=== PATIENT | female | born 1985 | race Caucasian/White ===

== ENCOUNTER 2020-06-29 17:29 | Emergency (ER) | payer OTHER, SELFPAY ==
[2020-06-29 18:22] VITALS: BP 168/110; PULSE 92; RESP 20; TEMP 36.7; O2SAT 97
--- NOTE | 2020-06-29 18:26 | ED.FEMALEGU ---
HPI - Female Genitourinary General Chief complaint: Abdominal Pain Stated complaint: cramping, spotting, headache Time Seen by Provider: 06/29/20 18:26 Source: patient Mode of arrival: ambulatory Limitations: no limitations History of Present Illness HPI Narrative: 35-year-old woman comes in today complaining of crampy pelvic pain, spotting, headache, and intermittent nausea for the last day or 2. Patient states her last LMP was 06/06. She is not currently on any control. Prior to that she was on an IUD. She has been trying to become for 2 years. She denies discharge, lightheadedness, chest pain, vomiting, fever, cough or cold symptoms. She denies new sexual partners. Patient states she has had irregular periods for years. MD elicited complaint: vaginal bleeding and pelvic pain Onset (ago): day(s) (2) Location of symptoms: suprapubic Severity: moderate Female Urogenital Radiation: Non-Radiating Quality of pain: cramping Consistency: intermittent Vaginal discharge: none Vaginal bleeding: scant Exacerbating factors: none Relieving factors: none Associated symptoms: nausea Sexual activity: Yes Possible : unsure if and at home test not taken Date of Last Menstrual Period: 06/06/20 Related Data Home Medications Medication Instructions Recorded Confirmed No Home Medications 06/29/20 06/29/20 Allergies Allergy/AdvReac Type Severity Reaction Status Date / Time No Known Allergies Allergy Verified 06/29/20 18:27 Review of Systems Review of Systems: All systems reviewed & are unremarkable except as noted in HPI and below Constitutional: Constitutional: Denies chills and Reports fatigue Eyes: Eyes: Denies change in vision and Denies photophobia ENT: Denies dysphagia, Denies nasal congestion and Denies sore throat Cardiovascular: Cardiovascular: Denies chest pain and Denies radiating jaw, neck or arm pain Respiratory: Respiratory: Denies cough and Denies dyspnea Gastrointestinal: Gastrointestinal: Denies abdominal pain, Reports nausea and Denies vomiting Genitourinary: Genitourinary: Denies hematuria, Denies nocturia, Denies dysuria and Denies vaginal discharge Musculoskeletal: Musculoskeletal: Denies arthralgias and Denies joint swelling Neurologic: Denies vertigo, Denies dizziness and Denies syncope Endocrine: Endocrine: Denies polydipsia and Denies polyuria Hematologic/Lymphatic: Hematologic/Lymphatic: Denies easy bleeding and Denies easy bruising Allergic/Immunologic: Allergic/Immunologic: Denies lip swelling and Denies throat swelling [facility] Surgical History Surgical History (Updated 06/29/20 @ 18:37 by Jason Ramires MD) History of Social History Social History (Updated 06/29/20 @ 18:37 by Jason Ramires MD) Smoking status: Current every day smoker Alcohol intake: never Substance use: never Living arrangements: with family Gender identity (if verbalized by the patient): Female Exam Const: General: healthy appearing and alert Nutritional Appearance: obese Orientation/consciousness: patient oriented x3 Limitations: no limitations Other: anxious, mild distress HENMT: Ears: external ears normal, TM's normal bilaterally and EAC's normal General nose exam: Normal nares present Face and sinus: normal facial exam Mouth: Yes moist mucous membranes Throat: posterior oropharynx normal Eyes: Conjunctivae: conjunctivae normal Pupils: Equal, round and reactive pupils present EOM: EOMs intact bilaterally Resp: Effort & Inspection: normal respiratory effort and not labored Auscultation: clear to auscultation bilaterally, no rales, no rhonchi and no wheezes Cardio: Rate: regular rate Rhythm: regular rhythm Heart sounds: no murmurs GI: GI Palp: Yes Soft to palpation, No Tenderness to palpation present (GI), No Guarding due to palpation present (GI), No Palpable mass present and No Rebound tenderness present Other: no flank tenderne
[2020-06-29 18:45] LABS: Basophils Absolute Auto 0.07 K/mm3 (0.00-0.10); Basophils Percent Auto 0.6 % (0.0-1.0); Eosinophils Percent Auto 2.7 % (1.0-6.0); Hematocrit 39.1 % (35.0-49.0); Hemoglobin 13.8 g/dL (12.0-15.0); Immature Granulocyte Absolute 0.04 K/mm3 (0.00-0.00); Immature Granulocyte Percent A 0.4 % (0.0-0.0); Lymphocytes Absolute Auto 3.33 K/mm3 (1.10-4.50); Lymphocytes Percent Auto 30.2 % (18.0-42.0); Mean Corpuscular HGB Conc 35.3 g/dL (32.0-36.0); Mean Corpuscular Hemoglobin 33.6 pg (27.0-31.0); Mean Corpuscular Volume 95.1 fL (78.0-102.0); Mean Platelet Volume 10.6 fl (9.2-11.8); Monocytes Absolute Auto 0.81 K/mm3 (0.10-0.90); Monocytes Percent Auto 7.4 % (2.0-11.0); Neutrophils Absolute Auto 6.5 K/mm3 (1.7-7.2); Neutrophils Percent Auto 58.7 % (50.0-70.0); Platelet Count Result 298 K/mm3 (150-420); Red Blood Count 4.11 M/mm3 (4.20-5.40); Red Cell Distribution Width 12.2 % (11.6-14.4)
[2020-06-29 19:01] LABS: Add Urine Microscopic? YES; Appearance Urine Clear (Clear); Bilirubin Urine Negative (Negative); Blood Urine Negative (Negative); Color Urine Yellow (Yellow); Glucose Urine UA Negative (Negative); Ketones Urine Negative (Negative); Leukocyte Esterase Ur Negative (Negative); Nitrate Urine Negative (Negative); Protein Urine Trace (Negative); Specific Grav Ur >= 1.030 (1.010-1.020); Urobilinogen Urine 0.2 mg/dL (0.2-1.0)
[2020-06-29 19:04] LABS: Bacteria Urine Trace /hpf; RBC Urine 0-2 /hpf (0-2); Squamous Epithelial Cell Urine Few /hpf (Few); WBC Urine 0-3 /hpf (0-3)
[2020-06-29 19:09] LABS: Alanine Aminotransferase 38 U/L (14-59); Albumin Level 2.7 g/dL (3.4-5.0); Alkaline Phosphatase 70 U/L (46-116); Anion Gap 7 mmol/L (8-16); Aspartate Amino Transferase 22 U/L (15-37); Bilirubin,Total 0.2 mg/dL (0.00-1.00); Blood Urea Nitrogen 14 mg/dL (7-18); Calcium 9.2 mg/dL (8.5-10.1); Carbon Dioxide 26 mmol/L (21-32); Chloride 105 mmol/L (98-108); Estimated CRCL calculation 89 ml/min; Estimated Glomerular Filt Rate > 60; Glucose 108 mg/dL (70-99); Osmolality Calculated 287 mOsm/kg (285-295); Potassium 3.5 mmol/L (3.5-5.1); Sodium 138 mmol/L (136-145); Total Protein 7.2 g/dL (6.4-8.2)
[2020-06-29 19:10] LABS: Thyroid Stimulating Hormone Reflex 1.84 u/IU/mL (0.36-3.74)
[2020-06-29 20:15] VITALS: BP 119/82; PULSE 71; RESP 20; TEMP 36.7; O2SAT 97
== END 2020-06-29 20:18 | disposition home or self-care (01) ==
PROVIDERS: Emergency Provider Emergency Medicine; PCP Physician Assistant
DX: O20.0 Threatened abortion (principal)
CPT/HCPCS: 36415; 80053; 81001; 84443; 84702; 85025; 87491; 87591; 99281; 99283

== ENCOUNTER 2020-10-07 12:33 | Emergency (ER) | payer OTHER, SELFPAY ==
--- NOTE | ~2020-10-07 | XR_ITS ---
XR ankle RT min 3V DATE: 10/07/2020 13:27 INDICATION: Patient stepped in hole. Lateral ankle swelling. TECHNIQUE: 4 views COMPARISON: None FINDINGS: There is lateral soft tissue swelling. No fracture or dislocation of the ankle or disruptio n of the ankle mortise is detected. Plantar calcaneal enthesopathy. IMPRESSION: Lateral soft tissue swelling; no fracture or dislocation Reviewed, dictated and finalized at location [facility].
[2020-10-07 13:12] VITALS: BP 132/72; PULSE 91; RESP 20; TEMP 36.4; O2SAT 97
--- NOTE | 2020-10-07 13:13 | ED.LOWEXIN ---
HPI - Extremity Injury (Lower) General Chief Complaint: Extremity Injury, Lower Stated Complaint: HURT ANKLE Time Seen by Provider: 10/07/20 13:14 Source: patient Mode of arrival: wheelchair Limitations: no limitations History of Present Illness HPI Narrative: 35-year-old woman comes in today complaining of right ankle pain and swelling that started last night after she stepped in a hole. She states that she felt something pop in her ankle. She has been unable to bear weight since. She denies any numbness or tingling and has had no prior ankle fractures or surgeries. complaint: ankle injury Onset (ago): hour(s) (12) Type of Injury: unknown Place: street/outdoors Severity: moderate Relieving factors: rest Exacerbating factors: weight bearing, movement and palpation Context: walking Associated symptoms: snap/pop sensation, swelling and unable to bear weight Other symptoms: none Related Data Allergies Allergy/AdvReac Type Severity Reaction Status Date / Time No Known Allergies Allergy Verified 10/07/20 13:19 Review of Systems Review of Systems: All systems reviewed & are unremarkable except as noted in HPI and below Constitutional: Constitutional: Denies chills and Denies fever(s) Musculoskeletal: Musculoskeletal: Reports arthralgias, Reports joint swelling and Denies muscle cramps Integumentary/Breasts: Skin/Breast: Denies pruritus, Denies rash and Denies skin ulcer Neurologic: Denies vertigo, Denies dizziness, Denies syncope, Denies focal weakness and Denies numbness Hematologic/Lymphatic: Hematologic/Lymphatic: Denies easy bleeding and Denies easy bruising Allergic/Immunologic: Allergic/Immunologic: Denies lip swelling and Denies throat swelling [facility] Surgical History Surgical History History of Social History Social History (Updated 06/29/20 @ 18:37 by Jason Ramires MD) Smoking status: Current every day smoker Alcohol intake: never Substance use: never Gender identity (if verbalized by the patient): Female Exam Const: General: healthy appearing and alert Orientation/consciousness: patient oriented x3 Limitations: no limitations Other: [id number] acute distress. Eyes: Conjunctivae: conjunctivae normal Pupils: Equal, round and reactive pupils present EOM: EOMs intact bilaterally Resp: Effort & Inspection: normal respiratory effort and not labored Auscultation: clear to auscultation bilaterally, no rales, no rhonchi and no wheezes Cardio: Rate: regular rate Rhythm: regular rhythm Heart sounds: no murmurs Skin: General skin exam: normal color, no jaundice and no pallor Rashes: no rashes Neuro: General: patient oriented x3, moves all extremities, no focal motor deficits and CN's II-XI intact bilaterally Speech: normal speech Extrem: General: no clubbing, cyanosis or edema Other: Tenderness and swelling over the right lateral malleolus and to a lesser degree the medial malleolus. There is no metatarsal tenderness, midfoot tenderness or calcaneal tenderness. Decreased range of motion. Distal neurovascular exam is intact. Psych: Appearance: grossly normal and well kempt Mental Status: mental status grossly normal Affect: normal affect Attitude: cooperative Thought content: Yes Normal thought content present Course Vital Signs Vital signs: Vital Signs Temperature 36.4 C 10/07/20 13:12 Pulse Rate 91 10/07/20 13:12 Respiratory Rate 20 10/07/20 13:12 Blood Pressure 132/72 10/07/20 13:12 Pulse Oximetry 97 10/07/20 13:12 Temperature 36.4 C 10/07/20 13:12 Pulse Rate 91 10/07/20 13:12 Respiratory Rate 20 10/07/20 13:12 Blood Pressure 132/72 10/07/20 13:12 Pulse Oximetry 97 10/07/20 13:12 MDM - Extremity Injury (Lower) Differential Diagnosis Differential diagnosis: Likely ankle sprain and strain and ankle fracture Discharge Plan Discharge Clinical Impression:
[2020-10-07 14:19] VITALS: BP 128/82; PULSE 88; RESP 20; O2SAT 98
== END 2020-10-07 14:25 | disposition home or self-care (01) ==
PROVIDERS: Emergency Provider Emergency Medicine; PCP Physician Assistant
DX: S93.401A Sprain of unspecified ligament of right ankle, initial encounter (principal)
CPT/HCPCS: 73610; 99283; L4350

== ENCOUNTER 2021-04-13 09:19 | Emergency (ER) | payer OTHER, SELFPAY ==
--- NOTE | ~2021-04-13 | CT_ITS ---
EXAMINATION: CTA chest PE protocol DATE: 04/13/2021 12:34 INDICATION: Elevated d-dimer. Anxiety. TECHNIQUE: Computed tomography angiography (CTA) of the chest was performed with 100 mL Omnipaque-350 intravenous contrast timed to evaluate the pulmonary arteries. Coronal maximum intensity projection 3D-reconstructions were created by the technologist. Automated exposure control and iterative reconst ruction technique were employed. Exam dose: 359.46 mGy-cm total exam DLP. COMPARISON: None. FINDINGS: There is suboptimal concentration of contrast material in the pulmonary arteries but no sylvia arent pulmonary embolism. No thoracic aortic aneurysm or dissection. No pulmonary infiltrate or consolidation or suspicious mass lesion is detected. No pleural effusion or pneumothorax. Normal heart size. No pericardial effusion. Included skeletal structures are unremarkable. IMPRESSION: No significant abnormality Reviewed, dictated and finalized at [facility]. Reviewed, dictated and finalized at location A. RS BUFFER IMPRESSION: No significant abnormality
[2021-04-13 09:25] VITALS: BP 149/107; PULSE 106; RESP 20; TEMP 36.6; O2SAT 97
--- NOTE | 2021-04-13 09:43 | ED.ANXIETY ---
HPI - Anxiety General Chief Complaint: Anxiety Stated Complaint: CHEST PAIN FOR 4 DAYS GETTING WORSE Source: patient and RN notes reviewed Mode of arrival: ambulatory Limitations: no limitations History of Present Illness HPI narrative: patient states she has been having some chest wall discomfort for the last 4 days intermittently. Also feels like she has been having some palpitations. Said last night she had to sit up to sleep because she felt like her heart was racing. She was started on some medication for anxiety/ depression just 2 weeks ago. No history of any heart problems in the past. She denies any associated nausea vomiting, shortness of breath, diaphoresis, radiation. She has been under emotional stress at home due to relationship issues. MD complaint: anxiety and heart racing Onset (ago): day(s) (4) Symptoms: chest pain, palpitations and extremity numbness/tingling Severity: moderate Quality: intermittent Place: home History of similar episodes: No Provoking factors: emotional stress Relieving factors: rest Exacerbating factors: thinking about event Related Data Home Medications Medication Instructions Recorded Confirmed escitalopram oxalate 10 mg PO DAILY 04/13/21 04/13/21 Allergies Allergy/AdvReac Type Severity Reaction Status Date / Time No Known Allergies Allergy Verified 10/07/20 13:19 Review of Systems Review of Systems: All systems reviewed & are unremarkable except as noted in HPI and below Constitutional: Constitutional: Denies chills and Denies fever(s) Respiratory: Respiratory: Denies cough, Denies dyspnea and Denies wheezing Gastrointestinal: Gastrointestinal: Denies nausea and Denies vomiting PMFSH Past Medical History Medical History (Updated 04/13/21 @ 13:10 by Pineda Agarwal MD) Anxiety and depression Surgical History Surgical History History of Social History Social History Smoking status: Current every day smoker Alcohol intake: never Substance use: never Gender identity (if verbalized by the patient): Female Exam Const: General: healthy appearing, no acute distress and alert Nutritional Appearance: well nourished Orientation/consciousness: patient oriented x3 Other: Female nurse in room during examination. HENMT: Head: normal to inspection Ears: external ears normal Eyes: Conjunctivae: conjunctivae normal Pupils: Equal, round and reactive pupils present EOM: EOMs intact bilaterally Neck: Neck: normal visual inspection Chest: Chest palpation & inspection: normal inspection of the chest Resp: Effort & Inspection: normal respiratory effort Auscultation: clear to auscultation bilaterally Cardio: Rate: regular rate and tachycardic GI: GI Palp: Yes Soft to palpation and No Tenderness to palpation present (GI) Auscultation: normal bowel sounds Back/Spine/Pelvis: Cervical Spine: cervical ROM normal Thoracic/Lumbar Spine: thoraco-lumbar ROM normal Skin: General skin exam: normal color Rashes: no rashes Neuro: General: patient oriented x3, moves all extremities, no meningeal signs and no focal motor deficits Speech: normal speech Gait exam (Neuro): Normal gait present Extrem: General: normal to inspection and no clubbing, cyanosis or edema Psych: Appearance: grossly normal and well kempt Mental Status: mental status grossly normal Affect: normal affect Attitude: cooperative Thought content: Yes Normal thought content present Course Vital Signs Vital signs: Vital Signs Temperature 36.6 C 04/13/21 09:25 Pulse Rate 106 H 04/13/21 09:25 Respiratory Rate 04/13/21 09:25 Blood Pressure 149/107 H 04/13/21 09:25 Pulse Oximetry 97 04/13/21 09:25 Temperature 36.6 C 04/13/21 13:22 Pulse Rate 107 H 04/13/21 13:22 Respiratory Rate 20 04/13/21 13:22 Blood Pressure 141/97 H 04/13/21 13:22 Pulse Oxi
--- NOTE | 2021-04-13 10:09 | ECG_ITS ---
Measurements Intervals [place] Rate: 98 P: 59 [place]: 146 QRS: 28 QRSD: 77 T: -2 QT: 348 QTc: 444 Interpretive Statements SINUS RHYTHM BORDERLINE T WAVE ABNORMALITY- ANT/INF LEADS BORDERLINE ECG Electronically Signed On 04-13-2021 10:17:04 TYPE CASTING MACHINE OPERATOR by Manny Spivey D.O.
[2021-04-13 10:20] VITALS: BP 148/91; PULSE 111; RESP 20; O2SAT 97
[2021-04-13 10:28] LABS: Basophils Absolute Auto 0.05 K/mm3 (0.00-0.10); Basophils Percent Auto 0.6 % (0.0-1.0); Eosinophils Absolute Auto 0.12 K/mm3 (0.02-0.50); Eosinophils Percent Auto 1.5 % (1.0-6.0); Hematocrit 43.6 % (35.0-49.0); Hemoglobin 15.7 g/dL (12.0-15.0); Immature Granulocyte Absolute 0.05 K/mm3 (0.00-0.00); Immature Granulocyte Percent A 0.6 % (0.0-0.0); Lymphocytes Absolute Auto 1.94 K/mm3 (1.10-4.50); Mean Platelet Volume 9.6 fl (9.2-11.8); Monocytes Absolute Auto 0.75 K/mm3 (0.10-0.90); Monocytes Percent Auto 9.3 % (2.0-11.0); Neutrophils Absolute Auto 5.2 K/mm3 (1.7-7.2); Platelet Count Result 297 K/mm3 (150-420); Red Blood Count 4.36 M/mm3 (4.20-5.40); Red Cell Distribution Width 13.3 % (11.6-14.4); White Blood Count 8.1 K/mm3 (4.8-10.8)
[2021-04-13 10:46] LABS: Troponin I 5.1 ng/L (0.00-60.4)
[2021-04-13 10:48] LABS: D Dimer 0.76 mg/L (0.19-0.50)
[2021-04-13 10:57] LABS: Alanine Aminotransferase 40 U/L (14-59); Albumin Level 2.4 g/dL (3.4-5.0); Alkaline Phosphatase 79 U/L (46-116); Anion Gap 12 mmol/L (8-16); Aspartate Amino Transferase 44 U/L (15-37); Bilirubin,Total 0.3 mg/dL (0.00-1.00); Blood Urea Nitrogen 8 mg/dL (7-18); Calcium 8.4 mg/dL (8.5-10.1); Carbon Dioxide 26 mmol/L (21-32); Chloride 102 mmol/L (98-108); Estimated CRCL calculation 91 ml/min; Estimated Glomerular Filt Rate > 60; Glucose 116 mg/dL (70-99); Osmolality Calculated 289 mOsm/kg (285-295); Sodium 140 mmol/L (136-145); Total Protein 6.8 g/dL (6.4-8.2)
[2021-04-13 11:35] VITALS: BP 141/100; PULSE 100; RESP 20
[2021-04-13 13:22] VITALS: BP 141/97; PULSE 107; RESP 20; TEMP 36.6; O2SAT 97
== END 2021-04-13 13:20 | disposition home or self-care (01) ==
PROVIDERS: Emergency Provider Emergency Medicine; PCP Physician Assistant
DX: R41.9 Unspecified symptoms and signs involving cognitive functions and awareness (principal); I10 Essential (primary) hypertension; R00.0 Tachycardia, unspecified; E87.6 Hypokalemia
CPT/HCPCS: 36415; 71275; 80053; 84484; 85025; 85380; 93005; 99283; 99284; Q9967

== ENCOUNTER 2022-03-12 16:32 | Inpatient (IN) | payer OTHER, SELFPAY ==
[2022-03-12] VITALS (64 sets, daily range): BP systolic 126–158; BP diastolic 55–128; PULSE 48–127; RESP 12–18; TEMP 36.6; O2SAT 92–100; BMI 27.8
[2022-03-12] MEDS: LACTATED RINGERS 1,000 ML 125 ML IV CONT (17:32)
[2022-03-12 17:45] LABS: Basophils Percent Auto 0.4 % (0.2-1.2); Eosinophils Absolute Auto 0.1 K/mm3 (0-0.3); Eosinophils Percent Auto 0.8 % (0-4.4); Hematocrit 36.6 % (37.0-47.0); Immature Granulocyte Absolute 0.06 K/mm3 (0.00-0.031); Immature Granulocyte Percent A 0.6 % (0-0.5); Lymphocytes Absolute Auto 2.14 K/mm3 (0.9-3.2); Lymphocytes Percent Auto 20.7 % (18.3-44.2); Mean Corpuscular HGB Conc 35.5 g/dl (32-36); Mean Corpuscular Hemoglobin 33.3 pg (26-34); Mean Corpuscular Volume 93.8 fl (80-100); Mean Platelet Volume 11.2 fl (7.4-10.4); Monocytes Absolute Auto 0.7 K/mm3 (0.1-0.6); Monocytes Percent Auto 6.4 % (2.6-8.5); Neutrophils Absolute Auto 7.4 K/mm3 (1.3-6.7); Neutrophils Percent Auto 71.1 % (45.5-73.1); Platelet Count Result 352 k/mm3 (150-375); Red Cell Distribution Width 12.5 % (11.5-14.5); White Blood Count 10.3 K/mm3 (4.5-10.0)
[2022-03-12 17:46] LABS: Add Urine Microscopic? YES; Appearance Urine Clear (Clear); Bilirubin Urine 1+ (Negative); Blood Urine 1+ (Negative); Color Urine Yellow (Yellow); Glucose Urine UA Negative (Negative); Ketones Urine Trace mg/dL (Negative); Leukocyte Esterase Ur Negative LEU/UL (Negative); Nitrate Urine Positive (Negative); Protein Urine 2+ mg/dL (Negative); Specific Grav Ur >= 1.030 (1.001-1.035); Urobilinogen Urine 0.2 mg/dL (<2.0)
[2022-03-12 17:47] LABS: Alanine Aminotransferase 14 U/L (6-35); Albumin Level 3.2 g/dL (3.5-5.1); Alkaline Phosphatase 597 U/L (38-126); Anion Gap 5 mmol/L (8-16); Aspartate Amino Transferase 17 U/L (14-36); Bilirubin,Total 0.4 mg/dL (0.2-1.3); Blood Urea Nitrogen 9 mg/dL (7-17); Calcium 8.3 mg/dL (8.4-10.2); Carbon Dioxide 21 mmol/L (22-30); Chloride 105 mmol/L (98-107); Estimated Glomerular Filt Rate > 60; Glucose 88 mg/dL (65-110); Potassium 3.8 mmol/L (3.4-5.0); Sodium 131 mmol/L (137-145); Uric Acid 3.9 mg/dL (2.5-7.5)
[2022-03-12 17:57] LABS: Bacteria Urine 1+ /hpf; Mucus Urine Heavy /lpf; RBC Urine 51-75 /hpf (0-2); Squamous Epithelial Cell Urine Few /hpf (Few); WBC Urine >75 /hpf
[2022-03-12 18:13] LABS: Creatinine Urine 296.5 mg/dL; Total Protein Urine Random 176 mg/dL; Ur Ttl Prot Creatinine Ratio 0.59 mg/mg (0-0.20)
[2022-03-12 18:27] LABS: Amphetamine Screen Urine Negative (Negative); Barbiturate Screen Urine Negative (Negative); Benzodiazepines Screen Urine Negative (Negative); Cannabinoid Screen Urine Negative (Negative); Cocaine Screen Urine Negative (Negative); HIV 1/2 Ab P24 Ag Result Negative (Negative); Methadone Screen Urine Negative (Negative); Opiate Screen Urine Negative (Negative); Phencyclidine Screen Urine Negative (Negative)
[2022-03-12 18:32] LABS: Hepatitis B Surface Antigen Negative (Negative); Rubella IgG Antibody 35.3 IU/ML
[2022-03-12] MEDS: LACTATED RINGERS 1,000 ML 250 ML IV CONT (18:50)
--- NOTE | 2022-03-12 18:59 | LDADM ---
This patient, Pam Yates, was admitted to Labor/Delivery/Recovery 106 on 03/12/22 at 16:32. Plans for labor, pain management and were discussed with patient. Patient/family oriented to hospital policies and general routines including ID bracelet, bed and alarms, visiting hours, pain management, procedures, bathroom and other care routines, personal items, smoking policy, room service/diet and guest tray routines, infant security routines, and visiting hours. Patient/Family are encouraged to report perceived risks to care and to ask questions if they do not understand what they are told or what they should do. See OBIX for further documentation.
--- NOTE | 2022-03-12 19:25 | WPDANESEPPF ---
Anes - Initial Pre Proc Eval Procedure: Operation Date: 03/12/22 20:00 Proposed Procedures p Section - Mirna Armas MD Date/Time: 03/12/22 19:25 Surgeon: Mirna Armas MD Pre Op Diagnosis: Repeat Pre Op Diagnosis: Contractions Patient Data Age: 36 Gender: F Height: 1.73 m Weight: 83 kg Last Vital Signs Pulse 86 03/12/22 19:16 BP 151/92 H 03/12/22 19:16 O2 Del Method Room Air 03/12/22 18:58 Allergies Allergy/AdvReac Type Severity Reaction Status Date / Time No Known Allergies Allergy Verified 10/07/20 13:19 Home Medications Medication Instructions Recorded Confirmed Type carvedilol 3.125 mg tablet (Coreg) 3.125 mg PO BID #20 tabs 04/13/21 03/12/22 Rx escitalopram oxalate 10 mg tablet 10 mg PO DAILY 04/13/21 03/12/22 History potassium chloride 10 mEq 10 meq PO DAILY #7 tabs 04/13/21 03/12/22 Rx tablet,extended release (Klor-Con) Laboratory Tests 03/12/22 03/12/22 03/12/22 17:28 17:28 17:28 WBC 10.3 K/mm3 H K/mm3 (4.5-10.0) RBC 3.90 M/mm3 L M/mm3 (4.2-5.4) Hgb 13.0 g/dL g/dL (12.0-15.0) Hct 36.6 % L % (37.0-47.0) MCV 93.8 fl fl (80-100) MCH 33.3 pg pg (26-34) MCHC 35.5 g/dl g/dl (32-36) RDW 12.5 % % (11.5-14.5) Plt Count 352 k/mm3 k/mm3 (150-375) MPV 11.2 fl H fl (7.4-10.4) Immature Gran % (Auto) 0.6 % H % (0-0.5) Neut % (Auto) 71.1 % % (45.5-73.1) Lymph % (Auto) 20.7 % % (18.3-44.2) [place] % (Auto) 6.4 % % (2.6-8.5) Eos % (Auto) 0.8 % % (0-4.4) Baso % (Auto) 0.4 % % (0.2-1.2) Lymph # (Auto) 2.14 K/mm3 K/mm3 (0.9-3.2) [place] # (Auto) 0.7 K/mm3 H K/mm3 (0.1-0.6) Eos # (Auto) 0.1 K/mm3 K/mm3 (0-0.3) Baso # (Auto) 0.0 K/mm3 K/mm3 (0.0-0.1) Abs Immat Gran (auto) 0.06 K/mm3 H K/mm3 (0.00-0.031) Absolute Neuts (auto) 7.4 K/mm3 H K/mm3 (1.3-6.7) Absolute Nucleated RBC 0.0 K/mm3 K/mm3 (0.0-0.012) Nucleated RBC % 0.0 % % (0.0-0.2) Sodium 131 mmol/L L mmol/L (137-145) Potassium 3.8 mmol/L mmol/L (3.4-5.0) Chloride 105 mmol/L mmol/L (98-107) Carbon Dioxide 21 mmol/L L mmol/L (22-30) Anion Gap 5 mmol/L L mmol/L (8-16) BUN 9 mg/dL mg/dL (7-17) Creatinine 0.50 mg/dL L mg/dL (0.7-1.0) Estim Creat Clear Calc Not Reportable Estimated GFR > 60 (59 - ) Glucose 88 mg/dL mg/dL (65-110) Uric Acid 3.9 mg/dL mg/dL (2.5-7.5) Calcium 8.3 mg/dL L mg/dL (8.4-10.2) Total Bilirubin 0.4 mg/dL mg/dL (0.2-1.3) AST 17 U/L U/L (14-36) ALT 14 U/L U/L (6-35) Alkaline Phosphatase 597 U/L H U/L (38-126) Total Protein 7.0 g/dL g/dL (6.3-8.2) Albumin 3.2 g/dL L g/dL (3.5-5.1) Urine Color Yellow (Yellow) Urine Appearance Clear (Clear) Urine pH 6.0 (5.0-9.0) Ur Specific [place] >= 1.030 (1.001-1.035) Urine Protein 2+ mg/dL H mg/dL (Negative) Urine Glucose (UA) Negative mg/dL mg/dL (Negative) Urine Ketones Trace mg/dL mg/dL (Negative) Ur Blood (Man) 1+ H (Negative) Urine Nitrate Positive H (Negative) Urine Bilirubin 1+ H (Negative) Urine Urobilinogen 0.2 mg/dL mg/dL (<2.0) Leukocyte Esterase Rfl Negative PAULINO/UL PAULINO/UL (Negative) Urine RBC 51-75 /hpf H /hpf (0-2) Urine WBC >75 /hpf H /hpf Ur Squamous Epith Cells Few /hpf /hpf (Few) Urine Bacteria 1+ /hpf H /hpf Urine Mucus Heavy /lpf H /lpf U Random Total Protein Urine Creatinine Protein/Creat Ratio 2 Urine Opiates
--- NOTE | 2022-03-12 20:10 | PM.IMHP ---
H&P: HPI History of Present Illness Date/Time: 03/12/22 20:10 Chief Complaint: Pt is a 36yo at 39.3 who presented for vague abdominal pain. She had two visits at [facility] in [place], last in nov. Never had anatomy US, never did GCT. Has a history of PreE last two pregnancies, at about 28w with the last, baby was 1# something. UDs neg. Last two pregnancies CS. Did not have delivery scheduled with her provider. She reports scant care because she was moving around and didn't have good transportation. Reports normal FM. Denies HAY/BV.Irregular ctx on monitor. NOt taking any meds except occasionally aspirin. ON admission she had elevated BPs, especially diastolics, and PIH labs were done, revealing PC ratio diagnostic of PreEclampsia. Review of Systems Review of Systems: All systems reviewed & are unremarkable except as noted in HPI and below PMFSH Past Medical History Medical History (Updated 03/12/22 @ 20:15 by Mirna Armas MD) Anxiety and depression Surgical History Surgical History (Updated 03/12/22 @ 20:15 by Mirna Armas MD) History of Social History Social History Smoking status: Current some day smoker Alcohol intake: never Substance use: never Lack of Transportation: YES Lack of Food: Never True Current Housing: I Have Housing Concerned About Future Housing: No Difficulty Paying Gas/Electric Bills: No Difficulty Paying for Meds: No Currently Unemployed: YES Education: High School Diploma/GED Difficulty w/ Childcare or Family Care: No Gender identity (if verbalized by the patient): Female Spiritual care concerns: No Meds Home Medications and Allergies Home Medications Medication Instructions Recorded Confirmed Type carvedilol 3.125 mg tablet (Coreg) 3.125 mg PO BID #20 tabs 04/13/21 03/12/22 Rx escitalopram oxalate 10 mg tablet 10 mg PO DAILY 04/13/21 03/12/22 History potassium chloride 10 mEq 10 meq PO DAILY #7 tabs 04/13/21 03/12/22 Rx tablet,extended release (Klor-Con) Allergies Allergy/AdvReac Type Severity Reaction Status Date / Time No Known Allergies Allergy Verified 10/07/20 13:19 Vital Signs Vital Signs - 24 hr 03/12/22 16:49 03/12/22 17:00 03/12/22 17:15 Temperature Pulse Rate 107 H 97 105 H Respiratory Rate Blood Pressure 147/97 H 132/95 H 129/94 H Oxygen Delivery 03/12/22 17:45 03/12/22 18:00 03/12/22 18:15 Temperature Pulse Rate 85 90 78 Respiratory Rate Blood Pressure 136/105 H 136/99 H 145/97 H Oxygen Delivery 03/12/22 18:30 03/12/22 18:45 03/12/22 19:00 Temperature Pulse Rate 84 87 90 Respiratory Rate Blood Pressure 142/93 H 143/106 H 147/102 H Oxygen Delivery 03/12/22 19:16 03/12/22 19:30 03/12/22 19:50 Temperature 98 F Pulse Rate 86 85 81 Respiratory Rate 18 Blood Pressure 151/92 H 146/100 H 158/105 H Oxygen Delivery 03/12/22 20:00 03/12/22 18:58 Temperature Pulse Rate 97 Respiratory Rate Blood Pressure 148/114 H Oxygen Delivery Room Air Exam Const: General: no acute distress Resp: Effort & Inspection: normal respiratory effort Auscultation: clear to auscultation bilaterally Cardio: Rate: regular rate Rhythm: regular rhythm GI: GI Palp: Yes Soft to palpation Extrem: General: normal to inspection H&P: Results Labs Labs: Short CBC 03/12/22 Range/Units 17:28 WBC 10.3 H (4.5-10.0) K/mm3 Hgb 13.0 (12.0-15.0) g/dL Hct 36.6 L (37.0-47.0) % Plt Count 352 (150-375) k/mm3 [facility] 03/12/22 17:28 Sodium 131 L Potassium 3.8 Chloride 105 Carbon Dioxide 21 L BUN 9 Creatinine 0.50 L Glucose 88 Calcium 8.3 L Liver Function 03/12/22 Range/Units 17:28 Total Bilirubin 0.4 (0.2-1.3) mg/dL AST 17 (14-36) U/L ALT 14 (6-35) U/L Alkaline Phosphatase 597 H (38-126) U/L Albumin 3.2 L (3.5-5.1) g/dL
--- NOTE | 2022-03-12 20:17 | WPDHPUPDATE1 ---
History and Physical Update Update Date/Time: 03/12/22 20:17 History and Physical has been reviewed, including an updated exam of the patient. There are NO changes in the patient's condition. Risks, benefits, and alternatives have been discussed and questions answered. Patient agrees to proceed with procedure.
--- NOTE | 2022-03-12 21:27 | P.PCNOB_ITS ---
OB - Delivery Note Procedure Delivery date: 03/12/22 Procedure: Procedures Operation Date: 03/12/22 20:00 <No data on this case meets the specified criteria> R LTCS Events: Preeclampsia w severe features and Other (scant care) Route of delivery: Specimen: Yes (placenta) Quantitative Blood Loss (ml): 310 Anesthesia type: Spinal Disposition: Floor Complications: none Narrative: The patient was taken to the OR and received spinal anesthesia. She was placed in dorsal supine position with left lateral tilt. SCDs and ngo were placed. She was prepped and draped in the normal sterile fashion. A Pfannensteil skin incision was made and carried through to the underlying layer of fascia. The fascia was incised in the midline and then extended laterally using Neri scissors. The muscles were in the midline and the peritoneum was entered bluntly. The peritoneal incision was extended inferiorly and superiorly with care to avoid the bladder. The bladder blade was then inserted, the vesicouterine peritoneum was grasped, incised with Metzenbaum scissors, and a bladder flap created. The bladder blade was reinserted. A low transverse uterine incision was made with a scalpel and extended bluntly. AROM was performed and fluid was noted to be clear. The head was delivered, followed by the remainder of the baby. The baby's oropharynx was suctioned. After 30 seconds, the cord was clamped and cut and the infant was handed off. Cord blood was obtained and the placenta was then removed manually. The uterus was exteriorized. A moist lap sponge was used to curette the endometrium. The uterine incision was then closed with one layer of 0-Vicryl in a running, locking fashion. Good hemostasis was noted. The posterior cul de sac was irrigated with normal saline and cleared of all clot and debris. The uterus was returned to the abdomen. Both lateral gutters were then irrigated. The rectus muscles were inspected and found to be hemostatic. The fascia was reapproximated using 0-Vicryl in running fashion. The subcutaneous tissue was irrigated with normal saline and made hemostatic with Bovie electrocautery. The subcutaneous tissue was reapproximated with a layer of running 2-0 plain gut. The skin was then closed with 4-0 Vicryl in a subcuticular fashion. Steri strips and a bandage were applied. The uterus was evacuated. The patient tolerated the procedure very well. All counts were correct. She was taken to the recovery room in good condition. [place] Baby Date of : 03/12/22 Time of : 20:44 Weeks of gestation at delivery: 39 gender: Male Weight (pounds): 5 Weight (ounces): 10 presentation: vertex Placenta delivery description: Manual Removal Cord Vessel Description: 3 Vessels and Delayed Cord Clamping score one minute: 8 score five minutes: 9
--- NOTE | 2022-03-12 21:45 | PC.NURSE ---
spoke to pt to get permission for adaptive parent to get mother-baby bracelet. pt states pt is okay with it.
--- NOTE | 2022-03-12 22:12 | SUR.PHASEI ---
RN, Johan Vu at bedside. RN, notified [place] CRNA of PT asymptomatic bradycardia. No new orders at this time.
[2022-03-12] MEDS: OXYTOCIN 30 UNITS/NS 500 ML 30 UNITS/500 ML BAG 125 UNITS IV CONT (22:45)
[2022-03-12] MEDS: MAGNESIUM SULF 4 GM/WATER100ML 4 GM/100 ML BAG IVPB (22:45)
[2022-03-12] MEDS: MAGNESIUM SULF 20GM/WATER500ML 500 ML 50 MG IV CONT (23:20)
[2022-03-13] VITALS (11 sets, daily range): BP systolic 118–142; BP diastolic 76–95; PULSE 57–83; RESP 16–18; TEMP 36.4–36.7; O2SAT 96–100
[2022-03-13] MEDS: KETOROLAC 30 MG/ML VIAL (*BKC) IV PUSH (00:32)
[2022-03-13] MEDS: LACTATED RINGERS 1,000 ML 75 ML IV CONT ×2 (02:49→15:46)
[2022-03-13 05:43] LABS: Basophils Absolute Auto 0.1 K/mm3 (0.0-0.1); Basophils Percent Auto 0.3 % (0.2-1.2); Eosinophils Absolute Auto 0.1 K/mm3 (0-0.3); Eosinophils Percent Auto 0.8 % (0-4.4); Hematocrit 33.8 % (37.0-47.0); Hemoglobin 11.9 g/dL (12.0-15.0); Immature Granulocyte Absolute 0.09 K/mm3 (0.00-0.031); Immature Granulocyte Percent A 0.6 % (0-0.5); Lymphocytes Absolute Auto 3.09 K/mm3 (0.9-3.2); Lymphocytes Percent Auto 21.4 % (18.3-44.2); Mean Corpuscular HGB Conc 35.2 g/dl (32-36); Mean Corpuscular Hemoglobin 33.9 pg (26-34); Mean Corpuscular Volume 96.3 fl (80-100); Mean Platelet Volume 11.4 fl (7.4-10.4); Monocytes Percent Auto 6.9 % (2.6-8.5); Neutrophils Absolute Auto 10.1 K/mm3 (1.3-6.7); Platelet Count Result 287 k/mm3 (150-375); Red Blood Count 3.51 M/mm3 (4.2-5.4); Red Cell Distribution Width 12.4 % (11.5-14.5); White Blood Count 14.5 K/mm3 (4.5-10.0)
--- NOTE | 2022-03-13 07:09 | PM.OBPNVD ---
OB - PN: Subj Subjective Date/time seen: 03/13/22 07:09 Patient comments: no complaints and pain well controlled baby status: adopting out Narrative: POD 1 from primary CS. Doing well. Normal lochia. Eating. Weiss in. Tolerating mag. SOme itching. UOP adequate but not yet diuresing well. BPs mildly elevated so far since delivery. OB - PN: Obj Data Labs 03/13/22 04:19 03/12/22 17:28 Labs: Laboratory Results - last 24 hr 03/12/22 03/12/22 03/12/22 17:28 17:28 17:28 WBC 10.3 H RBC 3.90 L Hgb 13.0 Hct 36.6 L MCV 93.8 MCH 33.3 MCHC 35.5 RDW 12.5 Plt Count 352 MPV 11.2 H Immature Gran % (Auto) 0.6 H Neut % (Auto) 71.1 Lymph % (Auto) 20.7 [place] % (Auto) 6.4 Eos % (Auto) 0.8 Baso % (Auto) 0.4 Lymph # (Auto) 2.14 [place] # (Auto) 0.7 H Eos # (Auto) 0.1 Baso # (Auto) 0.0 Abs Immat Gran (auto) 0.06 H Absolute Neuts (auto) 7.4 H Absolute Nucleated RBC 0.0 Nucleated RBC % 0.0 Sodium 131 L Potassium 3.8 Chloride 105 Carbon Dioxide 21 L Anion Gap 5 L BUN 9 Creatinine 0.50 L Estim Creat Clear Calc Not Reportable Estimated GFR > 60 Glucose 88 Uric Acid 3.9 Calcium 8.3 L Total Bilirubin 0.4 AST 17 ALT 14 Alkaline Phosphatase 597 H Total Protein 7.0 Albumin 3.2 L Urine Color Yellow Urine Appearance Clear Urine pH 6.0 Ur Specific [place] >= 1.030 Urine Protein 2+ H Urine Glucose (UA) Negative Urine Ketones Trace Ur Blood (Man) 1+ H Urine Nitrate Positive H Urine Bilirubin 1+ H Urine Urobilinogen 0.2 Leukocyte Esterase Rfl Negative Urine RBC 51-75 H Urine WBC >75 H Ur Squamous Epith Cells Few Urine Bacteria 1+ H Urine Mucus Heavy H U Random Total Protein Urine Creatinine Protein/Creat Ratio 2 Urine Opiates Screen Urine Methadone Screen Ur Barbiturates Screen Ur Phencyclidine Scrn Ur Amphetamine Screen U Benzodiazepines Scrn Urine Cocaine Screen U Cannabinoids Screen Hep Bs Antigen HIV 1&2 Ab/P24 Ag 4thGn Rubella IgG Antibody Blood Type Antibody Screen 03/12/22 03/12/22 03/12/22 17:28 17:28 17:28 WBC RBC Hgb Hct MCV MCH MCHC RDW Plt Count MPV Immature Gran % (Auto) Neut % (Auto) Lymph % (Auto) [place] % (Auto) Eos % (Auto) Baso % (Auto) Lymph # (Auto) [place] # (Auto) Eos # (Auto) Baso # (Auto) Abs Immat Gran (auto) Absolute Neuts (auto) Absolute Nucleated RBC Nucleated RBC % Sodium Potassium Chloride Carbon Dioxide Anion Gap BUN Creatinine Estim Creat Clear Calc Estimated GFR Glucose Uric Acid Calcium Total Bilirubin AST ALT Alkaline Phosphatase Total Protein Albumin Urine Color Urine Appearance Urine pH Ur Specific [place] Urine Protein Urine Glucose (UA) Urine Ketones Ur Blood (Man) Urine Nitrate Urine Bilirubin Urine Urobilinogen Leukocyte Esterase Rfl Urine RBC Urine WBC Ur Squamous Epith Cells Urine Bacteria Urine Mucus U Random Total Protein Urine Creatinine Protein/Creat Ratio 2 Urine Opiates Screen Urine Methadone Screen Ur Barbiturates Screen Ur Phencyclidine Scrn Ur Amphetamine Screen U Benzodiazepines Scrn Urine Cocaine Screen U Cannabinoids Screen Hep Bs Antigen Negative HIV 1&2 Ab/P24 Ag 4thGn Negative Rubella IgG Antibody 35.3 Blood Type AB Positive Antibody Screen Negative 03/12/22 03/12/22 03/13/22 17:28 17:28 04:19 WBC 14.5 H RBC 3.51 L Hgb 11.9 L Hct 33.8 L MCV 96.3 MCH 33.9 MCHC 35.2 RDW 12.4 Plt Count 287 MPV 11.4 H Immature Gran % (Auto) 0.6 H Neut % (Auto) 70.0 Lymph % (Auto) 21.4 [place] % (Auto) 6.9 Eos %
[2022-03-13] MEDS: HYDROcodone/acetaminophen (*CRX) 5-325 MG TABLET 1 TAB PO ×2 (08:35→19:09)
[2022-03-13] MEDS: MAGNESIUM SULF 20GM/WATER500ML 500 ML 50 MG IV CONT (09:02)
[2022-03-13 09:17] LABS: Rapid Plasma Reagin Non-Reactive (NonReactive)
--- NOTE | 2022-03-13 10:37 | WPDANLDNPN2 ---
Anes-Prog Note L&D-Neuraxial Date/Time: 03/13/22 10:37 Patient feedback: Patient satisfied with post-operative pain management.
--- NOTE | 2022-03-13 10:37 | WPDANLDPN2 ---
Anes-Prog Note L&D Date/Time: 03/13/22 10:37 Neuro status: Neuro function grossly intact. Vital Signs: Last Vital Signs Temp 36.5 C 03/13/22 08:00 Pulse 81 03/13/22 08:00 Resp 16 03/13/22 08:00 BP 129/89 03/13/22 08:00 Pulse Ox 98 03/13/22 08:00 O2 Del Method Room Air 03/13/22 08:00 Pain score (VAS): 0 I/O: Intake & Output 03/12/22 03/13/22 03/13/22 23:59 07:59 15:59 Intake Total 600 1540 Output Total 50 350 850 Balance -50 250 690 Patient feedback: Patient satisfied with anesthetic care.
[2022-03-13] MEDS: HYDROcodone/acetaminophen (*CRX) 10-325 MG TABLET 1 TAB PO ×2 (12:17→15:49)
--- NOTE | 2022-03-13 14:43 | PCCCNOTE ---
Received referral to see patient regarding adoption. Received fax last week from [employer] regarding adoption plan. Met with pt. this morning. Confirmed plan for adoption. Pam reports that adoptive parents are in room next door and are Hansel and Reyes Weiner. Pam reports that adoption cafe site attendant will be coming some time today to complete paperwork. Pam reports that she is very tired and referred me to adoptive parents to get information regarding cafe site attendant. Spoke with adoptive parents. They report that Florina Lynch will be coming in to complete paperwork with them and Pam. Pam, adoptive parents and/or the nurse are to call me when Florina or other financial services representative arrive. Will follow up with all regarding plan after cafe site attendant/rep arrive. Will complete authorization to release form when plan is known.
[2022-03-13] MEDS: DOCUSATE SODIUM 100 MG CAPSULE PO (15:49)
[2022-03-13] MEDS: SIMETHICONE 80 MG TAB.CHEW PO (19:09)
[2022-03-13] MEDS: IBUPROFEN 600 MG TABLET PO (19:44)
[2022-03-14] MEDS: HYDROcodone/acetaminophen (*CRX) 5-325 MG TABLET 1 TAB PO ×4 (02:51→20:21)
[2022-03-14] MEDS: IBUPROFEN 600 MG TABLET PO ×3 (02:52→15:56)
[2022-03-14 03:09] VITALS: BP 126/83
[2022-03-14 07:30] VITALS: BP 147/90; PULSE 62; RESP 18; TEMP 36.9; O2SAT 98
--- NOTE | 2022-03-14 08:49 | PM.OBPNVD ---
OB - PN: Subj Subjective Date/time seen: 03/14/22 08:49 Patient comments: no complaints and pain well controlled baby status: adopting out Narrative: BPs normotensive. No concerns. Diuresing well. OB - PN: Obj Data Labs 03/13/22 04:19 03/12/22 17:28 Labs: Laboratory Results - last 24 hr 03/12/22 17:28 RPR Non-reactive OB - PN A/P Plan day: 2 Plan: routine care Comments: Home tomorrow if BPs remain normal. Pt given information for pp follow up with me. Encourgaed control. Time Spent With Patient Time: Total time spent is greater than 50% in coordination of care (as documented) at patient's floor/unit and/or counseling patient: Exam Narrative: NAD abdomen soft, appropriately tender, incision CDI Extremities nontender with 1+ edema
[2022-03-14] MEDS: HYDROcodone/acetaminophen (*CRX) 10-325 MG TABLET 1 TAB PO (10:23)
[2022-03-14 11:46] VITALS: BP 138/86; PULSE 62; RESP 16; TEMP 36.9; O2SAT 100
--- NOTE | 2022-03-14 14:24 | PCCCNOTE ---
Met with pt. this morning. She has spoken with Florina Lynch who will be coming to the hospital with Aria Argueta to sign temporary guardianship papers. They will name the adoptive parents as temporary guardians. Baby will discharge home with adoptive parents. Authorization to release infant to person other than mother has been signed by patient and placed in baby's chart. Spoke with patient regarding adoption decision. She reports that she has given this much thought and has the support of her family. She is comfortable with the decision and her choice in adoptive parents. She has a few questions regarding the legal adoption process but will discuss those questions with [employer] and the attoney this afternoon. Pt. denies any other questions/concerns/needs at this time. I also spoke with the adoptive parents. They deny any needs at this time.
[2022-03-14] MEDS: DOCUSATE SODIUM 100 MG CAPSULE PO (15:56)
[2022-03-14 15:58] VITALS: BP 137/87; PULSE 66; RESP 18; TEMP 36.8; O2SAT 99
[2022-03-14 20:15] VITALS: BP 138/89; PULSE 68; RESP 18; TEMP 36.9; O2SAT 99
[2022-03-14 23:55] VITALS: BP 144/88
[2022-03-15 04:00] VITALS: BP 148/97
[2022-03-15] MEDS: HYDROcodone/acetaminophen (*CRX) 5-325 MG TABLET 1 TAB PO ×3 (04:18→09:48)
--- NOTE | 2022-03-15 07:00 | PC.NURSE ---
PT introductions made and plan of care discussed per post op c section, pain management, breast engorgement, daily care activities and follow up appts. PT received discharge instructions via one to one discussion, mom baby care guide and demonstrations. PT sole recipient of such instructions and no barriers to learning identified at this time. PT verbalized understanding of such care.
--- NOTE | 2022-03-15 07:28 | PM.OBPNVD ---
OB - PN: Subj Subjective Date/time seen: 03/15/22 07:28 Patient comments: no complaints and pain well controlled baby status: doing well Narrative: BPs good. Wants DC home. Baby home with adoptive parents yesterday. OB - PN: Obj Data Labs 03/13/22 04:19 03/12/22 17:28 OB - PN A/P Plan day: 3 Plan: discharge home Comments: DC instructions given Given info for FU with me. Time Spent With Patient Time: Total time spent is greater than 50% in coordination of care (as documented) at patient's floor/unit and/or counseling patient: Exam Narrative: NAD abdomen soft, appropriately tender, incision CDI Extremities nontender with 1+ edema
--- NOTE | 2022-03-15 07:32 | PM.OBDSVD ---
DS: Admitting Diagnosis Discharge Date 03/15/22 Admitting Diagnosis IUP 39.4, insufficient care, contractions, mild PreEclampsia DS: Discharge Diagnosis Discharge Diagnosis (1) Insufficient care in third trimester: Code(s): O09.33 - Supervision of with insufficient care, third trimester Status: Acute (2) History of : Code(s): Z98.891 - History of uterine scar from previous surgery Status: Acute (3) Preeclampsia: Code(s): O14.90 - Unspecified pre-eclampsia, unspecified trimester Status: Acute OB - DS: Summary Hospital Course Hospital Course: Pam presented with contractions at 39.4 and a prior CS. She had 2 visits elsewhere, no visits for 3 months. She was diagnosed with preeclampsia and had a repeat CS. Her post course was uncomplicated and she was discharged on POD 3 in a normotensive state. OB Procedures : None OB Procedures Intrapartum: OB Procedures: : None Peripartum Data Infant Delivery Method: Section Procedures: Procedures Operation Date: 03/12/22 20:00 Actual Procedure Side Surgeon p Section Mirna Armas MD complications: none Status at Discharge Functional status at discharge: independent ambulation Time Spent with Patient Time attestation: Total time spent providing and/or coordinating discharge services: Exam Narrative: NAD abdomen soft, appropriately tender, incision CDI DS: Data Data Completed and Pending Pending studies at discharge: Pending at discharge 03/12/22 20:46 Surgical [PTH] Routine Discharge Plan Discharge Attending physician on discharge: Mirna Armas Discharging Clinician: Mirna Armas Anticipated Discharge Date/Time: 03/15/22 07:29 Patient Disposition: Home, Self-Care Activity: may shower and pelvic rest Diet: regular Patient Instructions: Antibiotic Form, How to Stop Smoking (DC) Stand Alone Forms: General Discharge Information Follow-up/Referrals: Mirna Armas MD [Physician] - 2 Weeks Discharge Medications: New hydrocodone-acetaminophen 5-325 mg Tablet 1 tablet PO Q4-5H PRN (Reason: Moderate Pain (4-6)) Qty: 30 0RF ibuprofen 600 mg Tablet 600 mg PO Q6H PRN (Reason: Cramping) Qty: 60 0RF Discontinued escitalopram oxalate 10 mg tablet 10 mg PO DAILY potassium chloride [Klor-Con 10] 10 mEq tablet extended release 10 meq PO DAILY Qty: 7 0RF carvedilol [Coreg] 3.125 mg tablet 3.125 mg PO BID Qty: 20 0RF Rx Instructions: must administer with a meal/food Date of admission: 03/12/22 16:32 Primary Care Provider: Don,Markus Siddiqi Admitting Provider: Mirna Armas Attending physician on admission: Mirna Armas Condition: Stable
[2022-03-15 09:15] VITALS: BP 152/90; PULSE 76; RESP 16; TEMP 37.5; O2SAT 98
[2022-03-15 09:48] VITALS: PULSE 76; RESP 16; O2SAT 98
[2022-03-15] MEDS: DOCUSATE SODIUM 100 MG CAPSULE PO (09:49)
[2022-03-15] MEDS: SIMETHICONE 80 MG TAB.CHEW PO (09:49)
[2022-03-15] MEDS: IBUPROFEN 600 MG TABLET PO ×2 (09:49)
[2022-03-15] MEDS: TETANUS,DIPHTHERIA,AC PERTUSSIS ADULT (0.5 ML) BOOSTRIX IM (09:50)
--- NOTE | 2022-03-15 11:15 | PC.NURSE ---
PT received discharge instructions per protocol and verbalized understanding of such care. PT expressed desire to see infant in a couple months since it was an open adoption and they live within an hour. Pt discussed her desire to continue in a relationship with adoptive parents. PT has three children who still live at home and the older two live on their own.
== END 2022-03-15 11:45 | disposition home or self-care (01) | DRG 560 ==
LOC: ANHLDR 20:46 → ANHOB2 03-13 00:15
PROVIDERS: Admitting Provider Obstetrics & Gynecology; PCP Physician Assistant; Visit Provider Obstetrics & Gynecology
PROC: 10E0XZZ Delivery of Products of Conception, External Approach (ICD-10-PCS; CPT 59514; principal; 2022-03-12 20:00)
DX: O14.14 Severe pre-eclampsia complicating childbirth (principal); O77.0 Labor and delivery complicated by meconium in amniotic fluid; Z37.0 Single live birth; Z3A.39 39 weeks gestation of pregnancy; Z23 Encounter for immunization
CPT/HCPCS: 36415; 80053; 80307; 81001; 82570; 84156; 84550; 85025; 86592; 86703; 86762; 86850; 86900; 86901; 87086; 87340; 88307; 90471; 90686; 90715; A9270; G0008; G0432; J1100; J1885; J2274; J2370; J2405; J2590; J3475; J7120

== ENCOUNTER 2023-07-01 17:05 | Inpatient (IN) | payer MEDICAID, SELFPAY ==
[2023-07-01] VITALS (59 sets, daily range): BP systolic 100–180; BP diastolic 74–101; PULSE 34–166; RESP 18–20; TEMP 36.9–37; O2SAT 80–100; BMI 26.6
--- NOTE | ~2023-07-01 | US_ITS ---
EXAMINATION: US OB BPP wo non-stress, US OB follow up DATE: 07/01/2023 19:14 (accession [id number]), 07/01/2023 19:15 (accession [id number]) INDICATION: BPP, decel, at beside please . TECHNIQUE: Real-time ultrasound of the pelvis was performed. COMPARISON: None. FINDINGS: There is a single living fetus in vertex presentation, longitudinal lie. The placenta is anterior, w ell distant from the cervix. heart rate is 137 bpm. The amniotic fluid index is not measurable (5th to 95th percentile is 6.3 to 19.4 cm). Biophysical profile performed by the technologist: breathing (30 sec sustained breathing in 30 minutes): 2 out of 2. movement (3 gross body movements in 30 minutes: 2 out of 2. tone (one episode of mwzrgio-wasxhdvis-wetdfqb limb movement): 0 out of 2. Amniotic fluid pocket (2 cm): 0 out of 2. Total score: 4 out of 8. The following biometric data were obtained: Biparietal diameter (BPD): 9.25 cm; head circumference (HC): 32.03 cm; abdominal circumference (AC): 31.11 cm; femur length (FL): 7.16 cm. These measurements are concordant. Estimated weight is 2788 g +/- 418.15 g, which correlates with the less than third percentile w hen 06/25/2023 is used as estimated date of delivery. As single measurements, these parameters are each equal to the following estimated gestational ages w ith ranges of +/- 2 standard deviations: BPD: 37 weeks 4 days ( +/- 3 weeks 1 days). HC: 36 weeks 1 days ( +/- 2 weeks 5 days). AC: 35 weeks 0 days ( +/- 3 weeks 0 days). FL: 36 weeks 5 days (+/- 3 weeks 1 days). estimated gestational age based solely on measurements from this exam is 36 weeks 3 days +/- 2 weeks 4 days. IMPRESSION: Single living fetus in vertex presentation. Biophysical profile 4 out of 8. Oligohydramnios, no measurable fluid present. biometrics are small for dates, noting that measurements were difficult to obtain given the lac k of amniotic fluid. Results reported telephonically to Mirna Cain RN by Dr. Christy at 7:26 PM on 07/01/2023. Reviewed, dictated and finalized at location K. IMPRESSION: Single living fetus in vertex presentation. Biophysical profile 4 out of 8. Oligohydramnios, no measurable fluid present. biometrics are small for dates, noting that measurements were difficult t o obtain given the lack of amniotic fluid. Results reported telephonically to Mirna Cain RN by Dr. Christy at 7:26 PM on .
--- NOTE | 2023-07-01 17:40 | OBADM ---
This patient, Pam Yates, admitted to the OB room Labor/Delivery/Recovery 120 for observation. Patient/family oriented to hospital policies and general routines including ID bracelet, bed and alarms, visiting hours, pain management, procedures, bathroom and other care routines, personal items, smoking policy, room service/diet, and visiting hours. Patient/Family are encouraged to report perceived risks to care and to ask questions if they do not understand what they are told or what they should do.
[2023-07-01] MEDS: LACTATED RINGERS 1,000 ML 999 ML IV CONT (18:26)
[2023-07-01 18:40] LABS: Basophils Absolute Auto 0.1 K/mm3 (0.0-0.1); Basophils Percent Auto 0.5 % (0.2-1.2); Eosinophils Absolute Auto 0.1 K/mm3 (0-0.3); Eosinophils Percent Auto 0.8 % (0-4.4); Hematocrit 34.4 % (37.0-47.0); Hemoglobin 12.2 g/dL (12.0-15.0); Immature Granulocyte Absolute 0.12 K/mm3 (0.00-0.031); Lymphocytes Absolute Auto 2.69 K/mm3 (0.9-3.2); Lymphocytes Percent Auto 23.2 % (18.3-44.2); Mean Corpuscular HGB Conc 35.5 g/dl (32-36); Mean Corpuscular Hemoglobin 32.1 pg (26-34); Mean Corpuscular Volume 90.5 fl (80-100); Monocytes Absolute Auto 0.8 K/mm3 (0.1-0.6); Monocytes Percent Auto 6.8 % (2.6-8.5); Neutrophils Absolute Auto 7.9 K/mm3 (1.3-6.7); Neutrophils Percent Auto 67.7 % (45.5-73.1); Platelet Count Result 295 k/mm3 (150-375); Red Cell Distribution Width 13.2 % (11.5-14.5); White Blood Count 11.6 K/mm3 (4.5-10.0)
[2023-07-01 19:14] LABS: Appearance Urine Clear (Clear); Bacteria Urine None Seen /hpf; Bilirubin Urine Negative (Negative); Blood Urine Negative (Negative); Color Urine Yellow (Yellow); Glucose Urine UA Negative (Negative); Ketones Urine Negative (Negative); Leukocyte Esterase Ur Negative LEU/UL (Negative); Nitrate Urine Negative (Negative); Non Pathogenic Casts 0-2; Protein Urine 3+ mg/dL (Negative); RBC Urine 0-2 /hpf (0-2); Specific Grav Ur 1.026 (1.001-1.035); Squamous Epithelial Cell Urine None Seen /hpf (Few); WBC Urine 0-5 /hpf (0-3); pH Urine 6.5 (5.0-9.0)
[2023-07-01 19:15] LABS: Creatinine Urine 118.1 mg/dL
[2023-07-01 19:16] LABS: Add Urine Microscopic? YES
[2023-07-01 19:18] LABS: Alanine Aminotransferase 13 U/L (6-35); Albumin Level 2.6 g/dL (3.5-5.1); Alkaline Phosphatase 454 U/L (38-126); Anion Gap 2 mmol/L (4-12); Aspartate Amino Transferase 19 U/L (14-36); Bilirubin,Total 0.3 mg/dL (0.2-1.3); Blood Urea Nitrogen 10 mg/dL (7-17); Calcium 8.7 mg/dL (8.4-10.2); Carbon Dioxide 21 mmol/L (22-30); Chloride 110 mmol/L (98-107); Estimated CRCL calculation 131 ml/min; Estimated Glomerular Filt Rate > 60; Glucose 96 mg/dL (65-110); Potassium 3.8 mmol/L (3.4-5.0); Sodium 133 mmol/L (137-145); Uric Acid 3.8 mg/dL (2.5-7.5)
--- NOTE | 2023-07-01 19:18 | LDADM ---
This patient, Pam Yates, was admitted to Labor/Delivery/Recovery 120 on 07/01/23 at 19:27. Plans for labor, pain management and were discussed with patient. Patient/family oriented to hospital policies and general routines including ID bracelet, bed and alarms, visiting hours, pain management, procedures, bathroom and other care routines, personal items, smoking policy, room service/diet and guest tray routines, infant security routines, and visiting hours. Patient/Family are encouraged to report perceived risks to care and to ask questions if they do not understand what they are told or what they should do. See OBIX for further documentation.
--- NOTE | 2023-07-01 19:18 | PC.NURSE ---
Notified Dr. Whitlock of BPP results and updated her on available lab results. Dr. Whitlock also updated on FHT, vital signs, maternal and assessments and contractions. Decision made to proceed with section.
[2023-07-01 19:27] LABS: Barbiturate Screen Urine Negative (Negative); Benzodiazepines Screen Urine Negative (Negative)
[2023-07-01 19:38] LABS: Cannabinoid Screen Urine Negative (Negative); Cocaine Screen Urine Negative (Negative); Methadone Screen Urine Negative (Negative); Opiate Screen Urine Negative (Negative); Phencyclidine Screen Urine Negative (Negative)
[2023-07-01] MEDS: LACTATED RINGERS 1,000 ML 125 ML IV CONT (19:40)
--- NOTE | 2023-07-01 19:41 | WPDANESEPP ---
Anes - Eval Pre Procedure Procedure: repeat c section Date/Time: 07/01/23 19:41 Surgeon: kannan Preop Diagnosis: previous c section Pre Op Diagnosis: contractions Patient Data Age: 38 Gender: F Height: 1.73 m Weight: 79.5 kg Last Vital Signs Pulse 87 07/01/23 19:38 BP 136/94 H 07/01/23 19:38 Allergies Allergy/AdvReac Type Severity Reaction Status Date / Time No Known Allergies Allergy Verified 10/07/20 13:19 Home Medications Medication Instructions Recorded Confirmed Type piojywwa-[id number]-FA 1 mg 1 tablet PO DAILY 07/01/23 07/01/23 History tablet Laboratory Tests 07/01/23 07/01/23 07/01/23 18:30 18:48 19:01 WBC 11.6 H K/mm3 (4.5-10.0) RBC 3.80 L M/mm3 (4.2-5.4) Hgb 12.2 g/dL (12.0-15.0) Hct 34.4 L % (37.0-47.0) MCV 90.5 fl (80-100) MCH 32.1 pg (26-34) MCHC 35.5 g/dl (32-36) RDW 13.2 % (11.5-14.5) Plt Count 295 k/mm3 (150-375) MPV 11.0 H fl (7.4-10.4) Immature Gran % (Auto) 1.0 H % (0-0.5) Neut % (Auto) 67.7 % (45.5-73.1) Lymph % (Auto) 23.2 % (18.3-44.2) [place] % (Auto) 6.8 % (2.6-8.5) Eos % (Auto) 0.8 % (0-4.4) Baso % (Auto) 0.5 % (0.2-1.2) Lymph # (Auto) 2.69 K/mm3 (0.9-3.2) [place] # (Auto) 0.8 H K/mm3 (0.1-0.6) Eos # (Auto) 0.1 K/mm3 (0-0.3) Baso # (Auto) 0.1 K/mm3 (0.0-0.1) Abs Immat Gran (auto) 0.12 H K/mm3 (0.00-0.031) Absolute Neuts (auto) 7.9 H K/mm3 (1.3-6.7) Absolute Nucleated RBC 0.000 K/mm3 (0.0-0.012) Nucleated RBC % 0.0 % (0.0-0.2) Sodium 133 L mmol/L (137-145) Potassium 3.8 mmol/L (3.4-5.0) Chloride 110 H mmol/L (98-107) Carbon Dioxide 21 L mmol/L (22-30) Anion Gap 2 L mmol/L (4-12) BUN 10 mg/dL (7-17) Creatinine 0.50 L mg/dL (0.7-1.0) Estim Creat Clear Calc 131 ml/min Estimated GFR > 60 (59 - ) Glucose 96 mg/dL (65-110) Uric Acid 3.8 mg/dL (2.5-7.5) Calcium 8.7 mg/dL (8.4-10.2) Total Bilirubin 0.3 mg/dL (0.2-1.3) AST 19 U/L (14-36) ALT 13 U/L (6-35) Alkaline Phosphatase 454 H U/L (38-126) Total Protein 6.0 L g/dL (6.3-8.2) Albumin 2.6 L g/dL (3.5-5.1) Urine Color Yellow (Yellow) Urine Appearance Clear (Clear) Urine pH 6.5 (5.0-9.0) Ur Specific [place] 1.026 (1.001-1.035) Urine Protein 3+ H mg/dL (Negative) Urine Glucose (UA) Negative mg/dL (Negative) Urine Ketones Negative mg/dL (Negative) Ur Blood (Man) Negative (Negative) Urine Nitrate Negative (Negative) Urine Bilirubin Negative (Negative) Urine Urobilinogen 1.0 mg/dL (<2.0) Leukocyte Esterase Rfl Negative PAULINO/UL (Negative) Urine RBC 0-2 /hpf (0-2) Urine WBC 0-5 /hpf (0-3) Ur Squamous Epith Cells None seen /hpf (Few) Urine Bacteria None seen /hpf Urine Casts 0-2 U Random Total Protein Pending Urine Creatinine 118.1 mg/dL Protein/Creat Ratio 2 Pending Urine Opiates Screen Negative (Negative) Urine Methadone Screen Negative (Negative) Ur Barbiturates Screen Negative (Negative) Ur Phencyclidine Scrn Negative (Negative) Ur Amphetamine Screen Pending U Benzodiazepines Scrn Negative (Negative) Urine Cocaine Screen Negative (Negative) U Cannabinoids Screen Negative (Negative) RPR Pending Hep Bs Antigen Pending HIV 1&2 Ab/P24 Ag 4thGn Pending Ru
[2023-07-01 19:49] LABS: HIV 1/2 Ab P24 Ag Result Negative (Negative); Hepatitis B Surface Antigen Negative (Negative); Rubella IgG Antibody 28.3 IU/ML
[2023-07-01 19:50] LABS: Total Protein Urine Random 307 mg/dL
--- NOTE | 2023-07-01 19:52 | PC.NURSE ---
Dr. Whitlock in unit and tracing reviewed. Dr. Whitlock at bedside to discuss plan of care with patient.
--- NOTE | 2023-07-01 19:52 | PM.IMHP ---
H&P: HPI History of Present Illness Date/Time: 07/01/23 19:52 Chief Complaint: Contractions Narrative: 38 y/o with scattered care. No records available. She states edc 06/24 by an ultrasound at a clinic. She has not been seen in a few months. She presented to L and D with c/o contractions after having sex. tracing was not reassuring. Ultrasound showed bpp 4/8, severe oligo. Blood pressure persistently elevated on L and D. She denies scotomata or RUQ pain or severe headaches. PNC significant for 3 prior section, minimal care and tobacco abuse. P/C ratio 2.6. Review of Systems Review of Systems: All systems reviewed & are unremarkable except as noted in HPI and below Constitutional: Constitutional: Reports no additional constitutional complaints and Denies headache(s) Eyes: Eyes: Denies spots in vision ENT: Reports system reviewed and no additional complaints, except as documented and Denies headache(s) Cardiovascular: Cardiovascular: Denies chest pain and Denies dyspnea Respiratory: Respiratory: Denies dyspnea Gastrointestinal: Gastrointestinal: Reports no additional gastrointestinal complaints Genitourinary: Genitourinary: Reports amenorrhea Musculoskeletal: Musculoskeletal: Reports no additional musculoskeletal complaints Integumentary/Breasts: Skin/Breast: Denies breast mass and Denies rash Neurologic: Denies headache(s) Psychiatric: Psychiatric: Reports no additional psychiatric complaints [facility] Past Medical History Medical History Anxiety and depression Surgical History Surgical History History of Social History Social History Smoking status: Current some day smoker Alcohol intake: never Substance use: never Lack of Transportation: YES Lack of Food: Never True Current Housing: I Have Housing Concerned About Future Housing: No Difficulty Paying Gas/Electric Bills: No Difficulty Paying for Meds: No Currently Unemployed: YES Education: High School Diploma/GED Difficulty w/ Childcare or Family Care: No Living arrangements: with family Gender identity (if verbalized by the patient): Female Spiritual care concerns: No Meds Home Medications and Allergies Home Medications Medication Instructions Recorded Confirmed Type blkcdizp-xpd-Xw-FA 1 mg 1 tablet PO DAILY 07/01/23 07/01/23 History tablet Allergies Allergy/AdvReac Type Severity Reaction Status Date / Time No Known Allergies Allergy Verified 10/07/20 13:19 Vital Signs Vital Signs - 24 hr 07/01/23 17:26 07/01/23 17:30 07/01/23 18:00 Pulse Rate 111 H 95 92 Blood Pressure 149/87 H 139/96 H 133/84 07/01/23 19:38 Pulse Rate 87 Blood Pressure 136/94 H Exam Const: General: no acute distress Eyes: General: appearance normal, both eyes and all related structures Resp: Effort & Inspection: normal respiratory effort Cardio: Rate: regular rate GI: Other: Gravid no fundal tenderness no right upper quadrant pain Skin: General skin exam: no rashes or lesions noted Neuro: Cognition (Neuro): normal cognition Extrem: General: normal to inspection Psych: Mental Status: mental status grossly normal H&P: Results Labs Labs: Short CBC 07/01/23 Range/Units 18:30 WBC 11.6 H (4.5-10.0) K/mm3 Hgb 12.2 (12.0-15.0) g/dL Hct 34.4 L (37.0-47.0) % Plt Count 295 (150-375) k/mm3 BMP 07/01/23 18:30 Sodium 133 L Potassium 3.8 Chloride 110 H Carbon Dioxide 21 L BUN 10 Creatinine 0.50 L Glucose 96 Calcium 8.7 Liver Function 07/01/23 Range/Units 18:30 Total Bilirubin 0.3 (0.2-1.3) mg/dL AST 19 (14-36) U/L ALT 13 (6-35) U/L Alkaline Phosphatase 454 H (38-126) U/L Albumin 2.6 L (3.5-5.1) g/dL U
[2023-07-01] MEDS: FAMOTIDINE 20 MG/2 ML VIAL IV PUSH (19:55)
[2023-07-01] MEDS: ONDANSETRON INJ 4 MG/2 ML VIAL IV PUSH (19:56)
[2023-07-01 20:00] LABS: Amphetamine Screen Urine Positive (Negative)
--- NOTE | 2023-07-01 20:05 | PC.NURSE ---
Dr. Jacobs assuming care/covering patient for Dr. Whitlock at this time.
--- NOTE | 2023-07-01 21:17 | W.PM.OBCSD ---
OB - Delivery Note Procedure Delivery date: 07/01/23 Pre-op diagnosis: Other (Term with limited care previous section) Post-op Diagnosis: Same Induction method: None Delivery monitor: External FHT and External Uterine Prior to decision for section, ACOG/SMFM labor guidelines were considered and discussed with the patient and staff. Decision made to proceed with the section.: Yes Procedure Performed: Repeat Surgeon: Markus Arnett MD Anesthesia type: Spinal Description of Procedure/Findings: patient was admitted in active labor and expected 40-,6/7 weeks by her history. Her care was elsewhere. She did 3 previous sections. After obtaining informed consent she was taken the back prepped draped in the normal sterile fashion placed in the spine position. Under excellent spinal anesthetic the abdomen was entered in Pfannenstiel fashion progressive layers to fascia. Fascia incised midline cure number outward fashion bilaterally. Underlying muscles sharply dissected. Parietal peritoneum Mobic I clamped and by sharp dissection carried superiorly and inferiorly the dome of the bladder. Bladder blade placed. Bladder blade returned after a bladder flap was made. A low-transverse incision made the head delivered in the HALLIE position. Anterior posterior shoulders spontaneously. Cord clamped and cut infant passed off the table with an excellent cry. Placenta delivered intact manually. Uterus delivered on the abdomen wrapped in moist towel. After assuring no membranes or debris remained in the uterus, the uterus was closed with continuous running locking 0 Vicryl from level of all edge. This followed by a 2nd imbricating running locking 0 Vicryl from lateral edge to lateral edge. Hemostasis was assured. Uterus returned to the abdomen and the laps removed and accounted for. The hysterotomy incision inspected 1 last time noted be hemostatic. The fascia closed with continuous running 0 Vicryl from lateral edge to midline bilaterally. Irrigation subcutaneous layer the skin closed with 4 Monocryl glue. Blood loss was 295 by QBL. All sponge, needle, instrument counts were correct. There were no immediate complications Estimated Blood Loss: 295 Drains: No Packing: No Pathology: None sent Complications: No immediate complications Condition: Stable Disposition: PACU [place] Baby Date of : 07/01/23 Time of : 20:53 Weeks of gestation at delivery: 40 gender: Male presentation: vertex position: Left Occiput Anterior Placenta delivery description: Manual Removal Cord Vessel Description: 3 Vessels
--- NOTE | 2023-07-01 21:20 | PM.DS ---
DS: Admitting Diagnosis Discharge Date 07/03/2023 Admitting Diagnosis term with previous section in active labor DS: Discharge Diagnosis Discharge Diagnosis (1) Oligohydramnios: Code(s): O41.00X0 - Oligohydramnios, unspecified trimester, not applicable or unspecified Status: Acute (2) History of : Code(s): Z98.891 - History of uterine scar from previous surgery Status: Acute (3) Term : Code(s): Z34.90 - Encounter for supervision of normal , unspecified, unspecified trimester Status: Acute DS: Summary Hospital Course Reason for hospitalization: patient was admitted a walk-in. Apparently she had care up to about 36 weeks. By her estimation she was 40 and 6 7 weeks gestation. Ultrasound showed no fluid she was actively niyah with 3 previous sections. She underwent low-transverse section on 07/01/2023 Hospital Course: hospital course was unremarkable. She remained afebrile. She was up, voiding without difficulty, eating regular diet, ambulating, generally without complaints. Time Spent with Patient Time attestation: Total time spent providing and/or coordinating discharge services: DS: Data Data Completed and Pending Labs on day of discharge: Labs from last 24 hours 07/01/23 07/01/23 07/01/23 19:01 18:48 18:30 WBC 11.6 H RBC 3.80 L Hgb 12.2 Hct 34.4 L MCV 90.5 MCH 32.1 MCHC 35.5 RDW 13.2 Plt Count 295 MPV 11.0 H Immature Gran % (Auto) 1.0 H Neut % (Auto) 67.7 Lymph % (Auto) 23.2 [place] % (Auto) 6.8 Eos % (Auto) 0.8 Baso % (Auto) 0.5 Lymph # (Auto) 2.69 [place] # (Auto) 0.8 H Eos # (Auto) 0.1 Baso # (Auto) 0.1 Abs Immat Gran (auto) 0.12 H Absolute Neuts (auto) 7.9 H Absolute Nucleated RBC 0.000 Nucleated RBC % 0.0 Sodium 133 L Potassium 3.8 Chloride 110 H Carbon Dioxide 21 L Anion Gap 2 L BUN 10 Creatinine 0.50 L Estim Creat Clear Calc 131 Estimated GFR > 60 Glucose 96 Uric Acid 3.8 Calcium 8.7 Total Bilirubin 0.3 AST 19 ALT 13 Alkaline Phosphatase 454 H Total Protein 6.0 L Albumin 2.6 L Urine Color Yellow Urine Appearance Clear Urine pH 6.5 Ur Specific [place] 1.026 Urine Protein 3+ H Urine Glucose (UA) Negative Urine Ketones Negative Ur Blood (Man) Negative Urine Nitrate Negative Urine Bilirubin Negative Urine Urobilinogen 1.0 Leukocyte Esterase Rfl Negative Urine RBC 0-2 Urine WBC 0-5 Ur Squamous Epith Cells None seen Urine Bacteria None seen Urine Casts 0-2 U Random Total Protein 307 Urine Creatinine 118.1 Protein/Creat Ratio 2 2.60 H Urine Opiates Screen Negative Urine Methadone Screen Negative Ur Barbiturates Screen Negative Ur Phencyclidine Scrn Negative Ur Amphetamine Screen Positive A U Benzodiazepines Scrn Negative Urine Cocaine Screen Negative U Cannabinoids Screen Negative RPR Pending Hep Bs Antigen Negative HIV 1&2 Ab/P24 Ag 4thGn Negative Rubella IgG Antibody 28.3 Blood Type AB Positive Antibody Screen Negative Discharge Plan Discharge Attending physician on discharge: Markus Solano Consulting providers: Markus Solano Discharging Clinician: Markus Solano Patient Disposition: Home, Self-Care Activity: may shower, no straining, may drive after 2 weeks and pelvic rest Diet: heart healthy Wound Care Instructions: follow printed instructions Patient Instructions: Antibiotic Form, How to Stop Smoking (DC) Stand Alone Forms: General Discharge Information Follow-up/Referrals: Markus Solano MD [Physician] - Discharge Medications: New hydrocodone-acetaminophen 5-325 mg tablet 1 tablet PO Q4H PRN (Reason: pain) Qty: 30 0RF Continued 1 mg Tablet 1 tablet PO
[2023-07-01] MEDS: MORPHINE SULFATE (*CRX) 2 MG/ML INJ IV PUSH ×3 (21:57→23:35)
[2023-07-01] MEDS: ACETAMINOPHEN 500 MG TABLET 1000 MG PO (22:17)
[2023-07-01] MEDS: KETOROLAC 15 MG/ML VIAL (*BKC) IV PUSH (22:22)
[2023-07-01] MEDS: OXYTOCIN 30 UNITS/NS 500 ML 30 UNITS/500 ML BAG 125 UNITS IV CONT (22:34)
[2023-07-02] VITALS (7 sets, daily range): BP systolic 104–148; BP diastolic 66–91; PULSE 65–85; RESP 16–18; TEMP 36.2–37.2; O2SAT 96–99
[2023-07-02] MEDS: MORPHINE SULFATE (*CRX) 2 MG/ML INJ IV PUSH (00:10)
[2023-07-02] MEDS: LIDOCAINE 5% PATCH 1 PATCH TRANSDERM (01:06)
--- NOTE | 2023-07-02 02:12 | OBPPTRN ---
Patient transferred to post room #290 via bed. Williams Pam's significant other present and both were oriented to unit, room, information board, rooming in, admission packet and security measures. Patient verbalizes understanding.
[2023-07-02] MEDS: KCL 20 MEQ/D5/0.45% SOD CHL 1,000 ML 125 ML IV CONT (04:20)
[2023-07-02] MEDS: KETOROLAC 15 MG/ML VIAL (*BKC) IV PUSH (04:21)
[2023-07-02] MEDS: ACETAMINOPHEN 325 MG TABLET 650 MG PO (04:22)
[2023-07-02 04:54] LABS: Basophils Absolute Auto 0.1 K/mm3 (0.0-0.1); Basophils Percent Auto 0.5 % (0.2-1.2); Eosinophils Absolute Auto 0.2 K/mm3 (0-0.3); Hematocrit 32.7 % (37.0-47.0); Hemoglobin 11.5 g/dL (12.0-15.0); Immature Granulocyte Absolute 0.12 K/mm3 (0.00-0.031); Immature Granulocyte Percent A 0.8 % (0-0.5); Lymphocytes Absolute Auto 2.22 K/mm3 (0.9-3.2); Lymphocytes Percent Auto 15.1 % (18.3-44.2); Mean Corpuscular HGB Conc 35.2 g/dl (32-36); Mean Corpuscular Hemoglobin 32.4 pg (26-34); Mean Corpuscular Volume 92.1 fl (80-100); Monocytes Absolute Auto 0.9 K/mm3 (0.1-0.6); Monocytes Percent Auto 5.8 % (2.6-8.5); Neutrophils Absolute Auto 11.3 K/mm3 (1.3-6.7); Neutrophils Percent Auto 76.8 % (45.5-73.1); Platelet Count Result 251 k/mm3 (150-375); Red Blood Count 3.55 M/mm3 (4.2-5.4); Red Cell Distribution Width 13.2 % (11.5-14.5); White Blood Count 14.7 K/mm3 (4.5-10.0)
--- NOTE | 2023-07-02 07:18 | PM.OBPNVD ---
OB - PN: Subj Subjective Date/time seen: 07/02/23 07:18 Patient comments: no complaints and pain well controlled baby status: other (being transferred) OB - PN: Obj Data Labs 07/02/23 04:38 07/01/23 18:30 Labs: Laboratory Results - last 24 hr 07/01/23 07/01/23 07/01/23 18:30 18:48 19:01 WBC 11.6 H RBC 3.80 L Hgb 12.2 Hct 34.4 L MCV 90.5 MCH 32.1 MCHC 35.5 RDW 13.2 Plt Count 295 MPV 11.0 H Immature Gran % (Auto) 1.0 H Neut % (Auto) 67.7 Lymph % (Auto) 23.2 [place] % (Auto) 6.8 Eos % (Auto) 0.8 Baso % (Auto) 0.5 Lymph # (Auto) 2.69 [place] # (Auto) 0.8 H Eos # (Auto) 0.1 Baso # (Auto) 0.1 Abs Immat Gran (auto) 0.12 H Absolute Neuts (auto) 7.9 H Absolute Nucleated RBC 0.000 Nucleated RBC % 0.0 Sodium 133 L Potassium 3.8 Chloride 110 H Carbon Dioxide 21 L Anion Gap 2 L BUN 10 Creatinine 0.50 L Estim Creat Clear Calc 131 Estimated GFR > 60 Glucose 96 Uric Acid 3.8 Calcium 8.7 Total Bilirubin 0.3 AST 19 ALT 13 Alkaline Phosphatase 454 H Total Protein 6.0 L Albumin 2.6 L Urine Color Yellow Urine Appearance Clear Urine pH 6.5 Ur Specific [place] 1.026 Urine Protein 3+ H Urine Glucose (UA) Negative Urine Ketones Negative Ur Blood (Man) Negative Urine Nitrate Negative Urine Bilirubin Negative Urine Urobilinogen 1.0 Leukocyte Esterase Rfl Negative Urine RBC 0-2 Urine WBC 0-5 Ur Squamous Epith Cells None seen Urine Bacteria None seen Urine Casts 0-2 U Random Total Protein 307 Urine Creatinine 118.1 Protein/Creat Ratio 2 2.60 H Urine Opiates Screen Negative Urine Methadone Screen Negative Ur Barbiturates Screen Negative Ur Phencyclidine Scrn Negative Ur Amphetamine Screen Positive A U Benzodiazepines Scrn Negative Urine Cocaine Screen Negative U Cannabinoids Screen Negative Hep Bs Antigen Negative HIV 1&2 Ab/P24 Ag 4thGn Negative Rubella IgG Antibody 28.3 Blood Type AB Positive Antibody Screen Negative 07/02/23 04:38 WBC 14.7 H RBC 3.55 L Hgb 11.5 L Hct 32.7 L MCV 92.1 MCH 32.4 MCHC 35.2 RDW 13.2 Plt Count 251 MPV 11.0 H Immature Gran % (Auto) 0.8 H Neut % (Auto) 76.8 H Lymph % (Auto) 15.1 L [place] % (Auto) 5.8 Eos % (Auto) 1.0 Baso % (Auto) 0.5 Lymph # (Auto) 2.22 [place] # (Auto) 0.9 H Eos # (Auto) 0.2 Baso # (Auto) 0.1 Abs Immat Gran (auto) 0.12 H Absolute Neuts (auto) 11.3 H Absolute Nucleated RBC 0.000 Nucleated RBC % 0.0 Sodium Potassium Chloride Carbon Dioxide Anion Gap BUN Creatinine Estim Creat Clear Calc Estimated GFR Glucose Uric Acid Calcium Total Bilirubin AST ALT Alkaline Phosphatase Total Protein Albumin Urine Color Urine Appearance Urine pH Ur Specific [place] Urine Protein Urine Glucose (UA) Urine Ketones Ur Blood (Man) Urine Nitrate Urine Bilirubin Urine Urobilinogen Leukocyte Esterase Rfl Urine RBC Urine WBC Ur Squamous Epith Cells Urine Bacteria Urine Casts U Random Total Protein Urine Creatinine Protein/Creat Ratio 2 Urine Opiates Screen Urine Methadone Screen Ur Barbiturates Screen Ur Phencyclidine Scrn Ur Amphetamine Screen U Benzodiazepines Scrn Urine Cocaine Screen U Cannabinoids Screen Hep Bs Antigen HIV 1&2 Ab/P24 Ag 4thGn Rubella IgG Antibody Blood Type Antibody Screen Imaging Radiologist's impression: Impressions Obstetrics US/Biophysical Profile 07/01/23 19:16 IMPRESSION: Single living fetus in vertex presentation. Biophysical profile 4 out of 8. Oligohydramnios, no measurable fluid present. biometrics are small for dates, noting that measurements were difficult to obtain given the lack of amniotic fluid. Results reported telephonically to Mirna Cain RN by Dr. Christy at
--- NOTE | 2023-07-02 07:26 | WPDANLDPN2 ---
Anes-Prog Note L&D Date/Time: 07/02/23 07:26 Comfortable throughout: section Neuraxial method: spinal Epidural/Spinal procedure site: clean & non-tender Neuro status: Neuro function grossly intact. Cardiovascular status: normal Respiratory status: normal Airway patency: baseline Mental status: baseline Post-Op hydration status: normal Vital Signs: Last Vital Signs Temp 97.1 F L 07/02/23 04:30 Pulse 81 07/02/23 04:30 Resp 16 07/02/23 04:30 BP 117/80 07/02/23 04:30 Pulse Ox 96 07/02/23 04:30 O2 Del Method Room Air 07/01/23 23:15 Pain score (VAS): 0/10 Post-procedural complaints: none Patient feedback: Patient satisfied with anesthetic care.
--- NOTE | 2023-07-02 07:27 | WPDANLDNPN2 ---
Anes-Prog Note L&D-Neuraxial Date/Time: 07/02/23 07:27 Neuraxial medications: intrathecal PF morphine Opiod-related complaints: none Patient feedback: Patient satisfied with post-operative pain management.
[2023-07-02] MEDS: SIMETHICONE 80 MG TAB.CHEW PO ×2 (08:28→15:39)
[2023-07-02] MEDS: DOCUSATE SODIUM 100 MG CAPSULE PO ×2 (08:28→15:39)
[2023-07-02] MEDS: MULTIVIT/MIN/PREN/FOL AC/IRON TABLET 1 TAB PO (08:28)
[2023-07-02] MEDS: POLYSACCHARIDE IRON COMPLEX 150 MG CAPSULE PO (08:28)
[2023-07-02 15:10] LABS: Rapid Plasma Reagin Non-Reactive (NonReactive)
[2023-07-02] MEDS: HYDROcodone/acetaminophen (*CRX) 5-325 MG TABLET 1 TAB PO (15:39)
[2023-07-02] MEDS: IBUPROFEN 600 MG TABLET (15:40)
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
[2023-07-02] MEDS: HYDROcodone/acetaminophen (*CRX) 10-325 MG TABLET 1 TAB PO (22:47)
[2023-07-02] MEDS: IBUPROFEN 600 MG TABLET PO (22:48)
[2023-07-03 00:45] VITALS: BP 105/72; PULSE 84; RESP 14; O2SAT 97
[2023-07-03 04:40] VITALS: BP 113/64; PULSE 72; RESP 16; TEMP 36.8; O2SAT 96
[2023-07-03] MEDS: ACETAMINOPHEN 325 MG TABLET 650 MG PO (05:21)
[2023-07-03] MEDS: IBUPROFEN 600 MG TABLET PO (05:22)
--- NOTE | 2023-07-03 07:06 | PM.OBPNVD ---
OB - PN: Subj Subjective Date/time seen: 07/03/23 07:06 Patient comments: no complaints and pain well controlled OB - PN: Obj Data Labs 07/02/23 04:38 07/01/23 18:30 Labs: Laboratory Results - last 24 hr 07/01/23 18:48 RPR Non-reactive OB - PN A/P Plan day: 2 Plan: routine care, discharge home and follow up 6 weeks (4) Time Spent With Patient Time: Total time spent is greater than 50% in coordination of care (as documented) at patient's floor/unit and/or counseling patient: Time with patient: less than 15 minutes Exam Const: General: cooperative, healthy appearing and comfortable Nutritional Appearance: average body habitus Orientation/consciousness: oriented to person, oriented to place and oriented to time Resp: Effort & Inspection: normal respiratory effort Cardio: Rate: regular rate Rhythm: regular rhythm Heart sounds: S1 normal heart sound present and S2 normal heart sound present GI: Inspection: incision (cdi)
[2023-07-03 07:40] VITALS: BP 113/80; PULSE 88; RESP 16; TEMP 37; O2SAT 98
[2023-07-03] MEDS: DOCUSATE SODIUM 100 MG CAPSULE PO (08:42)
[2023-07-03] MEDS: MULTIVIT/MIN/PREN/FOL AC/IRON TABLET 1 TAB PO (08:42)
[2023-07-03] MEDS: SIMETHICONE 80 MG TAB.CHEW PO (08:43)
--- NOTE | 2023-07-03 09:19 | PC.NURSE ---
[id number] Introductions were made and mother was given the opportunity to initiate pumping for breast milk and she declined.
--- NOTE | 2023-07-03 18:48 | PC.NURSE ---
1100 Getting ready to walk pt out for D/C. DCFS Framer shows up wanting to interview this pt. She did not call fisrt. No one from [facility] called to inform us of this either. 1105 Called [facility] to see if they knew about this? CC stated they knew DCFS was going over to [facility] to see the infant. They did not know she was coming here. This RN informed the pt that they were here and would like to speak with her. She V/U'd.
== END 2023-07-03 11:32 | disposition home or self-care (01) | DRG 540 ==
LOC: ANHLDR 07-02 00:03 → ANHOB2 07-03 09:25 → ANHLDR 07-05 07:41 → ANHOB2 07-05 07:41
PROVIDERS: Admitting Provider Obstetrics & Gynecology; PCP Physician Assistant; Visit Provider Obstetrics & Gynecology
PROC: 10D00Z1 Extraction of Products of Conception, Low, Open Approach (ICD-10-PCS; CPT 59514; principal; 2023-07-01 20:00)
DX: O14.04 Mild to moderate pre-eclampsia, complicating childbirth (principal); Z37.0 Single live birth; Z3A.40 40 weeks gestation of pregnancy; O34.211 Maternal care for low transverse scar from previous cesarean delivery; O41.00X0 Oligohydramnios, unspecified trimester, not applicable or unspecified
CPT/HCPCS: 36415; 76816; 76819; 80053; 80307; 81001; 82570; 84156; 84550; 85025; 86592; 86703; 86762; 86850; 86900; 86901; 87340; 88307; A9270; G0378; G0379; G0432; J0360; J1885; J2270; J2274; J2405; J2590; J3480; J7120

== ENCOUNTER 2023-07-05 00:47 | Emergency (ER) | payer MEDICAID, SELFPAY ==
[2023-07-05 00:50] VITALS: BP 158/102; PULSE 96; RESP 20; TEMP 37; O2SAT 99
--- NOTE | 2023-07-05 02:58 | PC.NURSE ---
Pt seen ambulating from room saying that she hasn't been seen in two hours and she's leaving to go somewhere else. Steady gait. No acute distress.
== END 2023-07-05 03:41 | disposition left against medical advice (07) ==
LOC: ANHED 03:03
PROVIDERS: PCP Physician Assistant
DX: O90.0 Disruption of cesarean delivery wound (principal)
CPT/HCPCS: 99199